=== PATIENT | male | born 1980 | race Two or more races ===

== ENCOUNTER 2019-02-15 00:04 | Emergency (ER) | payer SELFPAY ==
[~2019-02-15] VITALS: Ht 180.3 cm; Wt 63.5 kg
--- NOTE | 2019-02-15 00:15 | NUR ---
Dr. Kwan at bedside for MSE
[2019-02-15] MEDS ORDERED: [UNRECOGNIZED DRUG - REMARK] (00:19)
[2019-02-15] MEDS ORDERED: ONDANSETRON ODT 4 MG TAB.RAPDIS SL ONE (00:30)
[2019-02-15] MEDS ORDERED: HYDROCODONE/APAP 5-325MG TABLET PO ONE (00:30)
[2019-02-15] MEDS ORDERED: ONDANSETRON ODT 4 MG TAB.RAPDIS ONE (00:43)
[2019-02-15] MEDS ORDERED: HYDROCODONE/APAP 5-325MG TABLET ONE (00:44)
--- NOTE | 2019-02-15 00:45 | NUR ---
patient taken to CT scan in stable condition
--- NOTE | 2019-02-15 01:50 | NUR ---
Patient discharged to home in stable conditon. Written and verbal after care instructions given. Patient verbalizes understanding of instructions. Patient ambulating with steady gait. Fiance at bedside to drive patient home
[2019-02-15 01:51] VITALS: BP 112/63
== END 2019-02-15 01:50 | disposition home or self-care (01) ==
LOC: ER 00:10
DX: S13.4XXA Sprain of ligaments of cervical spine, initial encounter (principal); S93.402A Sprain of unspecified ligament of left ankle, initial encounter; S09.90XA Unspecified injury of head, initial encounter; R59.0 Localized enlarged lymph nodes; F17.200 Nicotine dependence, unspecified, uncomplicated; W10.9XXA Fall (on) (from) unspecified stairs and steps, initial encounter; Y93.89 Activity, other specified; Y92.89 Other specified places as the place of occurrence of the external cause; Y99.8 Other external cause status
CPT/HCPCS: 70450; 72125; A4663; Q0162

== ENCOUNTER 2021-07-13 05:23 | Emergency (ER) | payer MEDICAID ==
[~2021-07-13] VITALS: Ht 180.3 cm; Wt 68.0 kg
[~2021-07-13 05:23] MED LIST: [UNRECOGNIZED DRUG - REMARK]
--- NOTE | 2021-07-13 05:50 | NUR ---
pt in room 5a states he has cough sob and c/p for 4 days.
--- NOTE | 2021-07-13 05:54 | NUR ---
Dr. Kulkarni at bedside for MSE.
[2021-07-13] MEDS ORDERED: IPRATROPIUM BROMIDE 0.5 MG/2.5 ML NEBU NEB ONE (06:00)
[2021-07-13] MEDS ORDERED: predniSONE 20 MG TABLET PO ONE (06:00)
[2021-07-13] MEDS ORDERED: ALBUTEROL SULFATE 2.5 MG/3 ML NEBU NEB ONE (06:00)
[2021-07-13] MEDS ORDERED: ALBUTEROL SULFATE 2.5 MG/3 ML NEBU ONE (06:02)
[2021-07-13] MEDS ORDERED: IPRATROPIUM BROMIDE 0.5 MG/2.5 ML NEBU ONE (06:02)
[2021-07-13 06:10] LABS: HEMATOCRIT 33.2 % (36.7-47.1); MEAN CORPUSCULAR HEMOGLOBIN 27.1 uug (23.8-33.4); MEAN CORPUSCULAR VOLUME 80.8 fL (73.0-96.2); PLATELET COUNT (AUTO) 329 K/uL (152-348)
[2021-07-13 06:32] LABS: CREATININE 1.1 mg/dL (0.6-1.3); POTASSIUM 3.7 mmol/L (3.5-5.1)
[2021-07-13] MEDS ORDERED: predniSONE 20 MG TABLET ONE (06:58)
[2021-07-13] MEDS ORDERED: ALBU2.5V38 NEB (07:06)
[2021-07-13] MEDS ORDERED: FLUT12AE5 INH (07:06)
[2021-07-13] MEDS ORDERED: NEBU-171 MC (07:06)
[2021-07-13] MEDS ORDERED: ALBU6.7H9 INH (07:06)
[2021-07-13] MEDS ORDERED: PRED20TA PO (07:06)
--- NOTE | 2021-07-13 07:15 | NUR ---
Pt states feeling better and breathing treatment helpped.
--- NOTE | 2021-07-13 07:23 | NUR ---
Patient discharged to home in stable condition. Written and verbal after care instructions given. Patient verbalizes understanding of instructions. Stressed follow up or return to ER for worsening s/s.
[2021-07-13 07:24] VITALS: BP 122/77
== END 2021-07-13 07:25 | disposition home or self-care (01) ==
LOC: ER 05:29
DX: J44.9 Chronic obstructive pulmonary disease, unspecified (principal); J45.902 Unspecified asthma with status asthmaticus; R94.31 Abnormal electrocardiogram [ECG] [EKG]; F17.210 Nicotine dependence, cigarettes, uncomplicated
CPT/HCPCS: 36415; 71045; 80048; 85025; 93005; 94644; 99285; J7512; A4663; J3590